=== PATIENT | female | born 1930 | race Caucasian/White ===

== ENCOUNTER 2019-04-22 10:01 | Observation (INO) ==
[2019-04-22] MEDS ORDERED: 0.9 % Sodium Chloride 500 ML IVC ONE (10:28)
[2019-04-22] MEDS ORDERED: Ipratropium/Albuterol Neb 3 ML IH ONE (10:46)
--- NOTE | 2019-04-22 10:52 | Emergency Department Note ---
Disposition Clinical Impression: Lung mass Hypotension Qualifiers: Hypotension type: unspecified hypotension type Qualified Code(s): I95.9 - Hypotension, unspecified UTI (urinary tract infection) Qualifiers: Urinary tract infection type: acute cystitis Disposition: Admitted As Inpatient Time of Disposition: 13:33 General Adult HPI - General Chief complaint: ED Extremity Injury, Upper Stated complaint: fall Time Seen by Provider: 04/22/19 10:07 Source: patient Mode of arrival: EMS Limitations: altered mental status Nursing Notes Reviewed: Yes Vital Signs Reviewed: Yes - History of Present Illness HPI Narrative: Ms. Mobley is a 88 yo F with PMH of oxygen-dependent emphysema and osteoporosis, presenting emergency department via EMS after a fall at [facility]. She is confused, only oriented to herself. She is unsure what caused the fall. She denies any preceding symptoms, dizziness, chest pain, dyspnea, or palpitations. prison staff reports that they heard the fall, and found her on the ground, leaning against the wall. It is unclear whether she passed out or hit h er head. She is not on anticoagulation. She admits to pain of the left shoulder and elbow, and low back pain, but denies any other symptoms. EMS reports that her oxygen saturation was dropping in route, increase her oxygen 4 L. She denies any chest pain, dyspnea, cough, or any focal weakness. She is hypotensive at 91/48. Code status is DNR-CC. Pain Scale: 5 - Related Data Home Medications Medication Instructions Recorded Confirmed Albuterol Neb [AccuNeb] 1.25 mg IH BID PRN 04/22/19 04/22/19 Atorvastatin Calcium [Lipitor] 20 mg PO DAILY 04/22/19 04/22/19 Furosemide [Lasix] 40 mg PO DAILY 04/22/19 04/22/19 HYDROcodone/Acet 5/325 mg [[place] 1 tab PO Q6H PRN 04/22/19 04/22/19 5-325 mg] Levothyroxine [Synthroid] 50 mcg PO DAILY 04/22/19 04/22/19 Lisinopril 2.5 mg PO DAILY 04/22/19 04/22/19 Metoprolol Tartrate [Lopressor] 25 mg PO DAILY 04/22/19 04/22/19 Pantoprazole Sodium 40 mg PO DAILY 04/22/19 04/22/19 Potassium Chloride [K-Tab ER] 20 meq PO DAILY 04/22/19 04/22/19 Allergies Allergy/AdvReac Type Severity Reaction Status Date / Time aspirin Allergy Hives Verified 12/08/18 13:51 Penicillins [PCN] Allergy See Verified 12/08/18 13:51 Comments Review of Systems: Admits to shoulder pain, elbow pain, back pain. Denies fevers, chills, dizziness, chest pain, dyspnea, cough, abdominal pain, nausea, vomiting, diarrhea, constipation dysuria, or lower extremity edema. Past Medical History - Past Medical History Medical history: Reports: hypertension Surgical history: Reports: non-contributory Psychiatric history: Reports: no psych history - Social History Smoking Status: Never smoker Smokeless Tobacco Status: No Alcohol use: Reports: none Drug use: Reports: none Physical Exam GEN: No acute distress, A&O1 (self only) HEAD: Atraumatic, normocephalic EYES: Pupils small, but symmetric and reactive to light, sclera white, conjunctiva pink HEART: RRR, no murmurs LUNGS: Inspiratory and expiratory wheezes throughout, crackles in the bases ABD: Soft, nontender, distended EXT: No edema noted, pulses 2/4 MSK: Mild tenderness to left shoulder and left elbow, tenderness to lumbar spine NEURO: No focal deficits, cooperative with exam, moving all extremities, no drift, no facial asymmetry, normal finger to nose testing - General Limitations: no limitations General appearance: alert, in no apparent distress Course Vital Signs Temperature 98.3 F 04/22/19 10:07 Pulse Rate 72 04/22/19 10:07 Respiratory Rate 18 04/22/19 10:07 Blood Pressure 91/48 04/22/19 10:07 O2 Sat by Pulse Oximetry 98 04/22/19 10:07 Temperature 98.3 F 04/22/19 10:07 Pulse Rate 76 04/22/19 12:10 Respiratory Rate 18 04/22/19 12:10 Blood Pressure 110/48 04/22/19 12:10 O2 Sat by Pulse Oximetry 98 04/22/19 12:10 Oxygen Delivery Oxygen Delivery Nasal Cannula Medical Decision Making - MDM Narrative Medical decision making narrative: Patient presents s/p fall likely secondary to hypoxia and respiratory distress. She is confused by daughter is at bedside who reports this appears at her baseline. She is chronically on O2 but desaturated en route, and also when sitting upright for the exam. She is hypotensive on presentation, but her BP responded well to 500ml NS. She is wheezing bilaterally with crackles in the bases. CXR shows increased interstitial markings, edema vs chronic changes. BNP is normal. EKG is sinus rhythm with HR 74 and no ischemic changes. Her Hgb is 9.4, but this chronic. CO2 is 41, and her normal is upper 30's. Renal function is stable. Other labs are unremarkable. Procalcitonin is negative. Head CT shows no acute intracranial abnormality. CT cervical spine shows multilevel degenerative changes. D-dimer is elevated, and CTA of the chest shows no PE, but does comment on a irregular left lower lobe mass, measuring 6.[address] also comments on multilevel indeterminate age thoracic fractures. With her hypotension and left lower lobe lung findings, will plan for admission. UA shows + nitrites, leuk esterase, will give 1G rocephin. Spoke with the hospitalist who requests a VBG and blood cultures, and accepts the admission. - Lab Data Lab results reviewed: Yes I reviewed the patient's lab results. Result diagrams: 04/22/19 10:38 04/22/19 10:38 Lab Results 04/22/19 04/22/19 04/22/19 Range/Units 10:38 10:38 10:38 WBC 7.4 (4.3-11.1) K/mcL RBC 3.23 L (3.82-4.97) M/mcL Hgb 9.4 L (11.5-15.4) g/dL Hct 32.3 L (35.3-44.9) % MCV 100.0 (83.0-100.0) fL MCH 29.1 (28.0-33.3) pg MCHC 29.1 L (31.6-35.5) g/dL RDW 13.8 (11.5-14.5) % Plt Count 219 (140-400) K/mcL MPV 9.4 (9.4-12.4) fL Immature Gran % 0.3 (0-4) % Seg Neutrophils % 65.8 % Lymphocytes % 23.1 % Monocytes % 8.4 % Eosinophils % 2.0 % Basophils % 0.4 % Neutrophils # 4.9 (1.6-8.9) K/mcL Lymphocytes # 1.7 (0.6-4.6) K/mcL Monocytes # 0.6 (0.0-1.3) K/mcL Eosinophils # 0.2 (0.0-0.6) K/mcL Basophils # 0.0 (0.0-0.2) K/mcL D-Dimer 2037 H (0-500) ng/mLFEU Sodium 143 (136-145) mEq/L Potassium 4.7 (3.5-5.1) mEq/L Chloride 98 (98-107) mEq/L Carbon Dioxide 41 H* (23-29) mEq/L BUN 28 H (8-23) mg/dL Creatinine 1.29 H (0.60-1.20) mg/dL Est GFR ( Amer) 47 L (> 60) Est GFR (Non-Af Amer) 39 L (> 60) BUN/Creatinine Ratio 22 (6-26) Glucose 107 H (70-105) mg/dL Calculated Osmolality 302 H (280-300) Lactic Acid (0.5-2.2) mmol/L Calcium 9.0 (8.6-10.3) mg/dL Troponin I < 0.03 (< 0.04) ng/mL B-Natriuretic Peptide (Less than 100) pg/mL Procalcitonin (0.00-0.15) ng/mL Urine Color (Yellow) Urine Clarity (Clear) Urine pH (5.0-8.0) pH Units Ur Specific [place] (1.010-1.025) Urine Protein (Neg-Trace) mg/dL Urine Glucose (UA) (Normal) mg/dL Urine Ketones (Negative) mg/dL Urine Blood (Negative) Urine Nitrite (Negative) Urine Bilirubin (Negative) Urine Urobilinogen (Normal) mg/dL Ur Leukocyte Esterase (Negative) Urine Microscopic RBC (0-3) per hpf Urine Microscopic WBC (0-3) per hpf Ur Squamous Epith Cells (None-Few) per lpf Urine Bacteria (None-Few) per hpf Hyaline Casts (None-Few) per lpf Ur Culture Indicated? (NO) 04/22/19 04/22/19 04/22/19 Range/Units 10:38 10:38 10:59 WBC (4.3-11.1) K/mcL RBC (3.82-4.97) M/mcL Hgb (11.5-15.4) g/dL Hct (35.3-44.9) % MCV (83.0-100.0) fL MCH (28.0-33.3) pg MCHC (31.6-35.5) g/dL RDW (11.5-14.5) % Plt Count (140-400) K/mcL MPV (9.4-12.4) fL Immature Gran % (0-4) % Seg Neutrophils % % Lymphocytes % % Monocytes % % Eosinophils % % Basophils % % Neutrophils # (1.6-8.9) K/mcL Lymphocytes # (0.6-4.6) K/mcL Monocytes # (0.0-1.3) K/mcL Eosinophils # (0.0-0.6) K/mcL Basophils # (0.0-0.2) K/mcL D-Dimer (0-500) ng/mLFEU Sodium (136-145) mEq/L Potassium (3.5-5.1) mEq/L Chloride (98-107) mEq/L Carbon Dioxide (23-29) mEq/L BUN (8-23) mg/dL Creatinine (0.60-1.20) mg/dL Est GFR ( Amer) (> 60) Est GFR (Non-Af Amer) (> 60) BUN/Creatinine Ratio (6-26) Glucose (70-105) mg/dL Calculated Osmolality (280-300) Lactic Acid 0.9 (0.5-2.2) mmol/L Calcium (8.6-10.3) mg/dL Troponin I (< 0.04) ng/mL B-Natriuretic Peptide 35 (Less than 100) pg/mL Procalcitonin < 0.02 (0.00-0.15) ng/mL Urine Color (Yellow) Urine Clarity (Clear) Urine pH (5.0-8.0) pH Units Ur Specific [place] (1.010-1.025) Urine Protein (Neg-Trace) mg/dL Urine Glucose (UA) (Normal) mg/dL Urine Ketones (Negative) mg/dL Urine Blood (Negative) Urine Nitrite (Negative) Urine Bilirubin (Negative) Urine Urobilinogen (Normal) mg/dL Ur Leukocyte Esterase (Negative) Urine Microscopic RBC (0-3) per hpf Urine Microscopic WBC (0-3) per hpf Ur Squamous Epith Cells (None-Few) per lpf Urine Bacteria (None-Few) per hpf Hyaline Casts (None-Few) per lpf Ur Culture Indicated? (NO) 04/22/19 Range/Units 12:22 WBC (4.3-11.1) K/mcL RBC (3.82-4.97) M/mcL Hgb (11.5-15.4) g/dL Hct (35.3-44.9) % MCV (83.0-100.0) fL MCH (28.0-33.3) pg MCHC (31.6-35.5) g/dL RDW (11.5-14.5) % Plt Count (140-400) K/mcL MPV (9.4-12.4) fL Immature Gran % (0-4) % Seg Neutrophils % % Lymphocytes % % Monocytes % % Eosinophils % % Basophils % % Neutrophils # (1.6-8.9) K/mcL Lymphocytes # (0.6-4.6) K/mcL Monocytes # (0.0-1.3) K/mcL Eosinophils # (0.0-0.6) K/mcL Basophils # (0.0-0.2) K/mcL D-Dimer (0-500) ng/mLFEU Sodium (136-145) mEq/L Potassium (3.5-5.1) mEq/L Chloride (98-107) mEq/L Carbon Dioxide (23-29) mEq/L BUN (8-23) mg/dL Creatinine (0.60-1.20) mg/dL Est GFR ( Amer) (> 60) Est GFR (Non-Af Amer) (> 60) BUN/Creatinine Ratio (6-26) Glucose (70-105) mg/dL Calculated Osmolality (280-300) Lactic Acid (0.5-2.2) mmol/L Calcium (8.6-10.3) mg/dL Troponin I (< 0.04) ng/mL B-Natriuretic Peptide (Less than 100) pg/mL Procalcitonin (0.00-0.15) ng/mL Urine Color Yellow (Yellow) Urine Clarity Cloudy A (Clear) Urine pH 5.5 (5.0-8.0) pH Units Ur Specific [place] 1.028 H (1.010-1.025) Urine Protein Negative (Neg-Trace) mg/dL Urine Glucose (UA) Normal (Normal) mg/dL Urine Ketones Negative (Negative) mg/dL Urine Blood Negative (Negative) Urine Nitrite Positive A (Negative) Urine Bilirubin Negative (Negative) Urine Urobilinogen Normal (Normal) mg/dL Ur Leukocyte Esterase Large H (Negative) Urine Microscopic RBC 0-3 (0-3) per hpf Urine Microscopic WBC TNTC H (0-3) per hpf Ur Squamous Epith Cells Many H (None-Few) per lpf Urine Bacteria Many H (None-Few) per hpf Hyaline Casts Few (None-Few) per lpf Ur Culture Indicated? YES A (NO) Attestation Statement - Attestation Attestation: I, Ruddy Ramos, examined this patient and my medical decision-making was reviewed with the DESIGN PAINTER/PA/Advanced Practice Nurse/Resident Physician. I agree with the documented findings, disposition and treatment plan as described except to the extent set forth below. 88-year-old female presents emergency department from the shelter after fall. The fall was unwitnessed and shelter staff found her leaning against wall. Patient's unable to give a history regarding her case and presentation. Patient was initially hypotensive during evaluation, this improved with IV fluids. Patient had difficulty breathing which improved with DuoNeb. She does have a history of COPD. D-dimer was elevated. CTA of the chest did not show evidence of PE however it did show a possible mass. Patient updated regarding imaging and laboratory results. Patient had urinary tract infection was for which she was given antibiotics. Vital signs improved after IV fluids and are stable prior to admission to the hospital Patient will be admitted to the [facility] for further care and evaluation.
[2019-04-22 10:56] LABS: Basophils % 0.4 %; Eosinophils # 0.2 K/mcL (0.0-0.6); Hematocrit 32.3 % (35.3-44.9); Hemoglobin 9.4 g/dL (11.5-15.4); Immature Granulocytes % 0.3 % (0-4); Lymphocytes # 1.7 K/mcL (0.6-4.6); Lymphocytes % 23.1 %; Mean Corpuscular HGB Conc 29.1 g/dL (31.6-35.5); Mean Corpuscular Hemoglobin 29.1 pg (28.0-33.3); Mean Platelet Volume 9.4 fL (9.4-12.4); Monocytes # 0.6 K/mcL (0.0-1.3); Monocytes % 8.4 %; Neutrophils # 4.9 K/mcL (1.6-8.9); Platelet Count 219 K/mcL (140-400); Red Blood Count 3.23 M/mcL (3.82-4.97); Red Cell Distribution Width 13.8 % (11.5-14.5); Segmented Neutrophils % 65.8 %; White Blood Count 7.4 K/mcL (4.3-11.1)
[2019-04-22] MEDS ORDERED: Isovue-370 500 ML BOTTLE IVP ONE (11:13)
[2019-04-22 11:17] LABS: Blood Urea Nitrogen 28 mg/dL (8-23); Carbon Dioxide 41 mEq/L (23-29); Chloride 98 mEq/L (98-107); Glucose 107 mg/dL (70-105); Osmolality,Calculated 302 (280-300); Potassium 4.7 mEq/L (3.5-5.1); Sodium 143 mEq/L (136-145)
[2019-04-22 11:39] LABS: Troponin I < 0.03 ng/mL (< 0.04)
[2019-04-22 12:00] LABS: BUN/Creatinine Ratio 22 (6-26); eGFR For African Americans 47 (> 60); eGFR For Non-African Americans 39 (> 60)
[2019-04-22 12:31] LABS: Bilirubin,Urine Negative (Negative); Blood,Urine Negative (Negative); Clarity,Urine Cloudy (Clear); Color,Urine Yellow (Yellow); Glucose,Urine (UA) Normal (Normal); Ketones,Urine Negative (Negative); Leukocyte Esterase,Urine Large (Negative); Nitrite,Urine Positive (Negative); PH,Urine 5.5 pH Units (5.0-8.0); Protein,Urine Negative (Neg-Trace); Specific Gravity,Urine 1.028 (1.010-1.025); Urobilinogen,Urine Normal (Normal)
[2019-04-22 12:32] LABS: Bacteria,Urine Many per hpf (None-Few); Hyaline Casts,Urine Few per lpf (None-Few); RBC,Urine 0-3 per hpf (0-3); Squamous Epithelial Cell,Urine Many per lpf (None-Few); WBC,Urine TNTC per hpf (0-3)
[2019-04-22] MEDS ORDERED: cefTRIAXone 1,000 MG in Water for inj. (sterile) 10 ML IVP ONE (13:02)
[2019-04-22 14:41] LABS: VBG HCO3 34 mEq/L (21-27); VBG PCO2 54 mmHg (41-51); VBG PH 7.41 pH Units (7.32-7.42); VBG PO2 195 mmHg (25-50)
--- NOTE | 2019-04-22 16:06 | Internal Med History&Physical ---
Date of Encounter: 04/22/19 Time of Encounter: 15:57 Internal Medicine - H&P: HPI Chief complaint: GLF Admitted From: Long-term Nursing Facility Plans for Post Hospital Care: Transfer Occupational Physician Care History of present illness: Ms. Mobley is a 88 year old female with history of chronic respiratory failure secondary to COPD on oxygen outpatient presents after a [facility]-level fall at her [facility]. Patient has a history of frequent falls. Today he was at [facility] and went into her closet to get dressed without using her call light before hand and had a ground-level fall. Patient denies dizziness or lightheadedness prior to fall. Denies loss of consciousness event. Complains of pain in her left calf. Unsure if she hit her head. Daughter says that patient has a history of frequent falls when she is noncompliant with using her call light. Some concern for confusion, however, daughter says she is mostly at baseline. In the ED, VSS. WBC 7.4. Bicarbonate 41. Creatinine 1.29 (BL 1-1.3). Troponin negative. BNP 35. D-dimer 2036. UA with concern for infection. Admitted to medicine. Past Med Surg Social Fam HX - Past Medical History Medical history: hypertension Additional medical history: has O2 at 2lpm at home Psychiatric history: no psych history - Past Surgical History Surgical History: non-contributory - Social History Smoking Status: Current every day smoker Smokeless Tobacco Status: No Alcohol use: none Drug use: none - Family History Sister Hx Family Endocrine Disorder: Yes (DM) Internal Medicine - H&P: Meds Albuterol Neb [AccuNeb] 1.25 mg IH BID PRN 04/22/19 [History] Atorvastatin Calcium [Lipitor] 20 mg PO DAILY 04/22/19 [History] Furosemide [Lasix] 40 mg PO DAILY 04/22/19 [History] HYDROcodone/Acet 5/325 mg [[place] 5-325 mg] 1 tab PO Q6H PRN 04/22/19 [History] Levothyroxine [Synthroid] 50 mcg PO DAILY 04/22/19 [History] Lisinopril 2.5 mg PO DAILY 04/22/19 [History] Metoprolol Tartrate [Lopressor] 25 mg PO DAILY 04/22/19 [History] Pantoprazole Sodium 40 mg PO DAILY 04/22/19 [History] Potassium Chloride [K-Tab ER] 20 meq PO DAILY 04/22/19 [History] Allergy/AdvReac Type Severity Reaction Status Date / Time aspirin Allergy Hives Verified 12/08/18 13:51 Penicillins [PCN] Allergy See Verified 12/08/18 13:51 Comments All Systems PM: A 10-system review of systems was performed and is negative for pertinent findings except as documented above in the HPI. Review of systems: General: Fevers / Chills / Weight loss / Night sweats Eyes: Blurry Vision / Change in Vision HENT: Ear Pain / Ear Drainage / Rhinorrhea / Throat Pain / Lymphadenopathy Cardiovascular: Chest Pain / Palpatations / Orthopnea / TATE / Weight gain Lungs: Dyspnea / Wheezing / Cough / Sputum production / Pleurisy Abdomen: Abdomen pain / Abdominal distention / Nausea / Vomiting / Diarrhea / Const : Dysuria / Urinary Frequency / Urinary Urgency / Hematuria Extremities: LE edema / Ext pain / Ext erythema Skin: Rashes / Abrasions / Contusions Psych: Hallucinations / Anxiety / Depression Neuro: Weakness / Numbness / Tingling / Facial Droop / Dysphagia - Constitutional Vitals: Temp Pulse Resp BP Pulse Ox 98.3 F 76 18 128/94 96 04/22/19 10:07 04/22/19 13:43 04/22/19 13:43 04/22/19 13:43 04/22/19 13:43 Exam: General: Ill-appearing and in no acute distress HEENT: No erythema of posterior pharynx. No exudates. Lymphatics: No mandibular or cervical lymphadenopathy Cardiovascular: RRR. No murmurs. No chest wall tenderness. Lungs: Clear to auscelltation bilaterally. Regular chest rise. Abdomen: Non-tender. No rebound or gaurding. Nl bowel sounds. Extremities: No edema. 2+ pulses radial and pedal pulses. No tenderness of left calf. Skin: No rahses, abrasions, or contusions. Nl cap refill. Psych: Nl attention. Oriented to place but not time. Neuro: piece goods packer II-XII intact. 5/5 strength. Sensation to light touch and pinprick intact. Internal Med - H&P Results - Labs CBC & Chem 7: 04/22/19 10:38 04/22/19 10:38 Labs: Short CBC 04/22/19 Range/Units 10:38 WBC 7.4 (4.3-11.1) K/mcL Hgb 9.4 L (11.5-15.4) g/dL Hct 32.3 L (35.3-44.9) % Plt Count 219 (140-400) K/mcL Neutrophils # 4.9 (1.6-8.9) K/mcL BMP 04/22/19 10:38 Sodium 143 Potassium 4.7 Chloride 98 Carbon Dioxide 41 H* BUN 28 H Creatinine 1.29 H Glucose 107 H Calcium 9.0 Cardiac Enzymes 04/22/19 Range/Units 10:38 Troponin I < 0.03 (< 0.04) ng/mL Urine 04/22/19 Range/Units 12:22 Urine Color Yellow (Yellow) Urine Clarity Cloudy A (Clear) Urine pH 5.5 (5.0-8.0) pH Units Ur Specific [place] 1.028 H (1.010-1.025) Urine Protein Negative (Neg-Trace) mg/dL Urine Glucose (UA) Normal (Normal) mg/dL - ABG Interpretation ABG results: 04/22/19 14:38 VBG pH 7.41 VBG pCO2 54 H VBG pO2 195 H VBG HCO3 34 H - Impressions ITS Impressions Shoulder X-Ray 04/22/19 00:00 IMPRESSION: Total shoulder arthroplasty without acute complication. No acute fracture. D/ / 04/22/2019 15:07:42 Ivan Jung MD / brandie Interpreting Provider: Ivan Jung MD Cervical Spine CT 04/22/19 10:24 IMPRESSION: No acute osseous abnormality. D/ / 04/22/2019 12:35:47 Ivan Jung MD / brandie Interpreting Provider: Ivan Jung MD Chest X-Ray 04/22/19 10:24 IMPRESSION: Increased interstitial prominence. Consider mild interstitial pulmonary edema versus chronic interstitial disease. D/ / 04/22/2019 11:19:16 Leo Beck MD / [facility] Interpreting Provider: Leo Beck MD Elbow X-Ray 04/22/19 10:24 IMPRESSION: 1. No acute fracture identified. 2. Small nonspecific elbow effusion. Radiographically occult fracture cannot be excluded in the setting of effusion and trauma. 3. Osteopenia. D/ / Froilan Molina MD / Froilan Molina MD Interpreting Provider: Froilan Molina MD Head CT 04/22/19 10:24 IMPRESSION: No acute intracranial abnormality. D/ / Ivan Jung MD / Ivan Jung MD Interpreting Provider: Ivan Jung MD Lumbar Spine X-Ray 04/22/19 10:27 IMPRESSION: Age-indeterminate multilevel compression fractures. Correlate MRI imaging as warranted. D/ / 04/22/2019 14:23:46 Ivan Jung MD / larissa Interpreting Provider: Ivan Jung MD Chest CTA 04/22/19 11:13 IMPRESSION: 1. No acute pulmonary artery embolism. 2. Irregular, hypodense, 6.4 x 6 cm, left lower lobe mass abutting the pleural surface. Recommend tissue sampling and PET-CT correlation. 3. Hiatal hernia. 4. Age-indeterminate/remote-appearing multilevel thoracic compression fractures. D/ / 04/22/2019 12:35:29 Ivan Jung MD / larissa Interpreting Provider: Ivan Jung MD - Assessment and Plan (1) Fall from ground level Current Visit: Yes Status: Acute Assessment and plan: Patient with history of frequent falls at home presents after a ground-level fall in the setting of normal vitals, mild confusion but otherwise no focal findings on physical exam, elevated d-dimer, and UA with concern for infection. -Fall likely mechanical in nature given her extensive history of falls and was not using call light to get up -Could be suffering from UTI, although, difficult to discern given this could just represent asymptomatic bacteriuria -Also experiencing left calf pain in setting of elevated d-dimer PLAN: - Gentle IVF - Ceftriaxone - F/u urine culture - LLE duplex - PT eval - Orthostatic BPs before discharge (2) Acute cystitis Current Visit: Yes Status: Acute Assessment and plan: See above Qualifiers: Hematuria presence: without hematuria Qualified Code(s): N30.00 - Acute cystitis without hematuria (3) Leg pain Current Visit: Yes Status: Acute Assessment and plan: See above Qualifiers: Laterality: left Qualified Code(s): M79.605 - Pain in left leg (4) Lung mass Current Visit: Yes Status: Acute Assessment and plan: On CTA x cm LLL mass abuting pleural surface. - We will discuss this with daughter - We will likely need to consult CT surgery for biopsy of this if within goals of care
[2019-04-22] MEDS ORDERED: Ondansetron ODT 4 MG TAB.RAPDIS SL PRN (16:19)
[2019-04-22] MEDS ORDERED: Naloxone 0.4 MG/ML INJ IVP PRN (16:19)
[2019-04-22] MEDS: *HR* HYDROcodone/Acet 5/325 mg TABLET PO PRN (18:11)
[2019-04-23] MEDS: *HR* HYDROcodone/Acet 5/325 mg TABLET PO PRN ×2 (00:12→06:21)
[2019-04-23 04:38] LABS: Basophils % 0.4 %; Eosinophils # 0.1 K/mcL (0.0-0.6); Eosinophils % 1.1 %; Immature Granulocytes % 0.4 % (0-4); Lymphocytes # 1.7 K/mcL (0.6-4.6); Lymphocytes % 21.1 %; Mean Corpuscular Hemoglobin 28.8 pg (28.0-33.3); Mean Corpuscular Volume 96.2 fL (83.0-100.0); Mean Platelet Volume 9.8 fL (9.4-12.4); Monocytes # 0.8 K/mcL (0.0-1.3); Monocytes % 9.4 %; Neutrophils # 5.5 K/mcL (1.6-8.9); Platelet Count 206 K/mcL (140-400); Red Blood Count 3.12 M/mcL (3.82-4.97); Red Cell Distribution Width 13.9 % (11.5-14.5); Segmented Neutrophils % 67.6 %; White Blood Count 8.1 K/mcL (4.3-11.1)
[2019-04-23 04:57] LABS: Calcium 9.1 mg/dL (8.6-10.3); Potassium 4.8 mEq/L (3.5-5.1)
[2019-04-23 05:28] LABS: ABG Base Excess 15 mEq/L (-2 to 3); ABG HCO3 43 mEq/L (21-27); ABG Oxygen Saturation 97 % (95-98); ABG PCO2 70 mmHg (35-45); ABG PH 7.39 pH Units (7.32-7.45); ABG PO2 101 mmHg (85-104); ABG TCO2 45 mEq/L (20-26)
[2019-04-23] MEDS: Furosemide 40 MG TABLET PO SCH (08:36)
[2019-04-23] MEDS: cefTRIAXone 1,000 MG in Water for inj. (sterile) 10 ML IVP SCH (08:36)
--- NOTE | 2019-04-23 13:14 | Internal Med Progress Note ---
Hospitalist Progress Note - Encounter Date of Encounter: 04/23/19 Time of Encounter: 13:12 - Subjective Interval History: Patient found to have elevated PCo2 overnight but noncompliant with BiPAP. Still complaining of knee pain this morning. - Exam Vitals: Temp Pulse Resp BP Pulse Ox 99.0 F 68 18 91/54 98 04/23/19 11:56 04/23/19 11:56 04/23/19 11:56 04/23/19 11:56 04/23/19 11:56 Exam: General: Ill-appearing and in no acute distress HEENT: No erythema of posterior pharynx. No exudates. Lymphatics: No mandibular or cervical lymphadenopathy Cardiovascular: RRR. No murmurs. No chest wall tenderness. Lungs: Clear to auscelltation bilaterally. Regular chest rise. Abdomen: Non-tender. No rebound or gaurding. Nl bowel sounds. Extremities: No edema. 2+ pulses radial and pedal pulses. No tenderness of left calf. Skin: No rahses, abrasions, or contusions. Nl cap refill. MSK: Mild joint line tenderness of Left knee. Normal active ROM of left knee. Psych: Nl attention. Oriented to place but not time. Neuro: spray operator II-XII intact. 5/5 strength. Sensation to light touch and pinprick intact. - Assessment and Plan (1) Fall from ground level Current Visit: Yes Status: Acute Assessment and Plan: Patient with history of frequent falls at home presents after a ground-level fall in the setting of normal vitals, mild confusion but otherwise no focal findings on physical exam, elevated d-dimer, and UA with concern for infection. -Fall likely mechanical in nature given her extensive history of falls and was not using call light to get up -Could be suffering from UTI, although, difficult to discern given this could just represent asymptomatic bacteriuria - urine cx pending -Also experiencing left calf pain in setting of elevated d-dimer - doppler pending PLAN: - Gentle IVF - Ceftriaxone - F/u urine culture - LLE duplex - PT eval - Orthostatic BPs before discharge (2) Acute cystitis Current Visit: Yes Status: Acute Assessment and Plan: See above (3) Leg pain Current Visit: Yes Status: Acute Assessment and Plan: See above (4) Lung mass Current Visit: Yes Status: Acute Assessment and Plan: On CTA x cm LLL mass abuting pleural surface. Discussed this with daughter and patient regarding risks and benefits of further testing and possible prognoses if nothing was done - do not want undergo further workup or treatment at this time. - Monitor DVT Prophylaxis: heparin Internal Medicine: Result - Labs CBC & Chem 7: 04/23/19 04:06 04/23/19 04:06 Labs: Short CBC 04/23/19 Range/Units 04:06 WBC 8.1 (4.3-11.1) K/mcL Hgb 9.0 L (11.5-15.4) g/dL Hct 30.0 L (35.3-44.9) % Plt Count 206 (140-400) K/mcL Neutrophils # 5.5 (1.6-8.9) K/mcL BMP 04/23/19 04:06 Sodium 143 Potassium 4.8 Chloride 99 Carbon Dioxide 40 H* BUN 25 H Creatinine 1.23 H Glucose 104 Calcium 9.1 - ABG Interpretation ABG results: ABG ABG pH 7.39 pH Units (7.32-7.45) 04/23/19 05:23 ABG pCO2 70 mmHg (35-45) H* 04/23/19 05:23 ABG pO2 101 mmHg (85-104) 04/23/19 05:23 ABG O2 Saturation 97 % (95-98) 04/23/19 05:23 PT/INR, D-dimer D-Dimer 2037 ng/mLFEU (0-500) H 04/22/19 10:38 - Impressions Impressions Shoulder X-Ray 04/22/19 00:00 IMPRESSION: Total shoulder arthroplasty without acute complication. No acute fracture. D/ / 04/22/2019 15:07:42 Ivan Jung MD / brandie Interpreting Provider: Ivan Jung MD Cervical Spine CT 04/22/19 10:24 IMPRESSION: No acute osseous abnormality. D/ / 04/22/2019 12:35:47 Ivan Jung MD / brandie Interpreting Provider: Ivan Jung MD Elbow X-Ray 04/22/19 10:24 IMPRESSION: 1. No acute fracture identified. 2. Small nonspecific elbow effusion. Radiographically occult fracture cannot be excluded in the setting of effusion and trauma. 3. Osteopenia. D/ / Froilan Molina MD / Froilan Molina MD Interpreting Provider: Froilan Molina MD Lumbar Spine X-Ray 04/22/19 10:27 IMPRESSION: Age-indeterminate multilevel compression fractures. Correlate MRI imaging as warranted. D/ / 04/22/2019 14:23:46 Ivan Jung MD / larissa Interpreting Provider: Ivan Jung MD Chest CTA 04/22/19 11:13 IMPRESSION: 1. No acute pulmonary artery embolism. 2. Irregular, hypodense, 6.4 x 6 cm, left lower lobe mass abutting the pleural surface. Recommend tissue sampling and PET-CT correlation. 3. Hiatal hernia. 4. Age-indeterminate/remote-appearing multilevel thoracic compression fractures. D/ / 04/22/2019 12:35:29 Ivan Jung MD / larissa Interpreting Provider: Ivan Jung MD Consult Discharge Plan - Plan Referrals: Cameron Shipley MD [Primary Care Provider] - ____ (2) Acute cystitis Qualifiers: Hematuria presence: without hematuria Qualified Code(s): N30.00 - Acute cystitis without hematuria (3) Leg pain Qualifiers: Laterality: left Qualified Code(s): M79.605 - Pain in left leg
[2019-04-23] MEDS: *HR* Heparin 5,000 UNIT/ML VIAL SQ SCH (17:44)
--- NOTE | 2019-04-23 23:01 | Electrocardiograph Report ---
[address] [address] Test Date: 2019-04-22 Pat Name: Amita Mobley Department: EXAM7 Room: 3B12 Gender: F Inspector Subassemblies: : [id number] Requested By: Tal Szymanski Order Number: [id number] Reading MD: Jana Li Measurements Intervals [place] Rate: 74 P: 73 SD: 161 QRS: 60 QRSD: 78 T: 55 QT: 367 QTc: 388 Interpretive Statements Sinus rhythm Atrial premature complexes Electronically Signed On 04-23-2019 22:59:56 EDT by Jana Li
[2019-04-24] MEDS: *HR* Heparin 5,000 UNIT/ML VIAL SQ SCH (05:24)
[2019-04-24 07:26] VITALS: BP 114/74
[2019-04-24] MEDS: Furosemide 40 MG TABLET PO SCH (07:43)
[2019-04-24] MEDS: cefTRIAXone 1,000 MG in Water for inj. (sterile) 10 ML IVP SCH (07:46)
--- NOTE | 2019-04-24 07:55 | Discharge Summary ---
Orders not resulted at time of discharge: Pending orders 04/22/19 10:58 Culture,Blood [BC] Stat Date of Encounter: 04/24/19 Time of Encounter: 07:52 - Discharge Diagnosis (1) Fall from ground level Priority: Primary Status: Acute (2) Acute cystitis Priority: Secondary Status: Acute Qualifiers: Hematuria presence: without hematuria Qualified Code(s): N30.00 - Acute cystitis without hematuria (3) Leg pain Priority: Secondary Status: Acute Qualifiers: Laterality: left Qualified Code(s): M79.605 - Pain in left leg (4) Lung mass Priority: Secondary Status: Acute Hospital course: Ms. Mobley is a 88 year old female with history of frequent falls at [facility] presented after a ground-level fall. Patient got up without using her call light or her walker and had a ground-level fall while putting on her clothes. On presentation, complained of left knee pain but imaging without acute findings. Also had a questionable E coli UTI on workup (unclear if this was asymptomatic bacteuria or acute cystitis) so was sent home with Keflex. Recommend she use ice and heat therapy on her knee for pain control and always use her call light before getting up at [facility] to avoid future falls. - Time Spent with Patient Total time spent providing and/or coordinating discharge services: 65 minutes Time spent: Greater than 30 minutes - Discharge Medications Prescriptions: New cephALEXin [Keflex] 500 mg PO BID 5 Days #10 capsule Continued Furosemide [Lasix] 40 mg PO DAILY Levothyroxine [Synthroid] 50 mcg PO DAILY Atorvastatin Calcium [Lipitor] 20 mg PO DAILY Lisinopril 2.5 mg PO DAILY Metoprolol Tartrate [Lopressor] 25 mg PO DAILY HYDROcodone/Acet 5/325 mg [[place] 5-325 mg] 1 tab PO Q6H PRN PRN Reason: Pain Pantoprazole Sodium 40 mg PO DAILY Potassium Chloride [K-Tab ER] 20 meq PO DAILY Albuterol Neb [AccuNeb] 1.25 mg IH BID PRN PRN Reason: sob/wheezing Home Medications: Albuterol Neb [AccuNeb] 1.25 mg IH BID PRN 04/22/19 [History] Atorvastatin Calcium [Lipitor] 20 mg PO DAILY 04/22/19 [History] Furosemide [Lasix] 40 mg PO DAILY 04/22/19 [History] HYDROcodone/Acet 5/325 mg [[place] 5-325 mg] 1 tab PO Q6H PRN 04/22/19 [History] Levothyroxine [Synthroid] 50 mcg PO DAILY 04/22/19 [History] Lisinopril 2.5 mg PO DAILY 04/22/19 [History] Metoprolol Tartrate [Lopressor] 25 mg PO DAILY 04/22/19 [History] Pantoprazole Sodium 40 mg PO DAILY 04/22/19 [History] Potassium Chloride [K-Tab ER] 20 meq PO DAILY 04/22/19 [History] cephALEXin [Keflex] 500 mg PO BID 5 Days #10 capsule 04/24/19 [Rx] Allergies/Adverse Reactions: Allergy/AdvReac Type Severity Reaction Status Date / Time aspirin Allergy Hives Verified 12/08/18 13:51 Penicillins [PCN] Allergy See Verified 12/08/18 13:51 Comments Date of admission: 04/22/19 13:07 Primary care physician: Cameron Shipley MD Consults: 04/22/19 16:15 Consult to Physical Therapy [CONS] Routine Comment: Evaluate, develop and implement POC Reason for Consult: Deconditioning Does patient have active BEDREST order?: No Is patient medically & hemodynamically stable?: Yes Patient assessed for mobility or mobilized this visit?: No 04/23/19 05:04 Consult to Respiratory Therapy [CONS] Routine Reason for Consult: ABG Call Completed: No - Constitutional Vitals: Temp Pulse Resp BP Pulse Ox 98.3 F 78 16 114/74 98 04/24/19 07:21 04/24/19 07:21 04/24/19 07:21 04/24/19 07:21 04/24/19 07:21 Exam: General: Ill-appearing and in no acute distress HEENT: No erythema of posterior pharynx. No exudates. Lymphatics: No mandibular or cervical lymphadenopathy Cardiovascular: RRR. No murmurs. No chest wall tenderness. Lungs: Clear to auscelltation bilaterally. Regular chest rise. Abdomen: Non-tender. No rebound or gaurding. Nl bowel sounds. Extremities: No edema. 2+ pulses radial and pedal pulses Skin: No rahses, abrasions, or contusions. Nl cap refill. Psych: Nl attention. A&Ox3 Neuro: transportation manager II-XII intact. 5/5 strength. Sensation to light touch and pinprick intact. - Patient Status Disposition: Transfer Intermediate Care Fac Condition: Good Functional capacity at discharge: uses cane/walker Overall status at discharge: patient is progressing back to baseline - Discharge Instructions Follow Up With: Cameron Shipley MD [Primary Care Provider] - - Diet and Activity Activity: ambulate only with your walker Diet: advance to your usual diet
--- NOTE | 2019-04-24 08:02 | Physician Discharge Referral ---
ExtendedCare Referral Info Transfer To: [facility] Provider in Charge after Transfer: PCP Institutional Level of Care: Intermediate - Diagnosis (1) Fall from ground level Status: Acute (2) Acute cystitis Priority: Secondary Status: Acute (3) Leg pain Priority: Secondary Status: Acute (4) Lung mass Priority: Secondary Status: Acute Prognosis: Good Aware of Diagnosis: Patient, Family Aware of Prognosis: Patient, Family - Transfer Medications Prescriptions: cephALEXin [Keflex] 500 mg PO BID 5 Days #10 capsule Home Medications: Albuterol Neb [AccuNeb] 1.25 mg IH BID PRN 04/22/19 [History] Atorvastatin Calcium [Lipitor] 20 mg PO DAILY 04/22/19 [History] Furosemide [Lasix] 40 mg PO DAILY 04/22/19 [History] HYDROcodone/Acet 5/325 mg [[place] 5-325 mg] 1 tab PO Q6H PRN 04/22/19 [History] Levothyroxine [Synthroid] 50 mcg PO DAILY 04/22/19 [History] Lisinopril 2.5 mg PO DAILY 04/22/19 [History] Metoprolol Tartrate [Lopressor] 25 mg PO DAILY 04/22/19 [History] Pantoprazole Sodium 40 mg PO DAILY 04/22/19 [History] Potassium Chloride [K-Tab ER] 20 meq PO DAILY 04/22/19 [History] cephALEXin [Keflex] 500 mg PO BID 5 Days #10 capsule 04/24/19 [Rx] Allergies/Adverse Reactions: Allergy/AdvReac Type Severity Reaction Status Date / Time aspirin Allergy Hives Verified 12/08/18 13:51 Penicillins [PCN] Allergy See Verified 12/08/18 13:51 Comments - Respiratory Orders Smoking Cessation: Smoking cessation has been advised. For more information, call the [place] Tobacco Quit Line at 3-215-TGCX-NOW. - Ancillary Orders May use pressure relief devices daily prn - Advance Directives Living Will: No Power of Medical Doctor for Health Care: No Code Status: DNR-Comfort Care - Mobility Orders Chair, Ambulate - Rehabiliation Orders Rehab Potential: Fair - Treatments Skin tear care topically daily PRN per policy, May check for fecal impaction rectally daily PRN - Diet Orders Regular CERTIFICATION: I certify that the transfer of the above named patient to an Extended Care Facility is necessary for the continuing treatment of the diagnosis listed. The above information is true and accurate reflection of patient's current condition. Antonino Jorge MD Confidential - Redisclosure prohibited without a patient's written consent.
== END 2019-04-24 09:56 ==
LOC: EMEROOARM 10:01 → 3BNU 10:01 → SUATTDRO 13:07 → 3BNU 13:57
PROVIDERS: ADMIT Internal Medicine; ATTEND Internal Medicine

== ENCOUNTER 2019-07-16 16:30 | Inpatient (IN) ==
[2019-07-16] MEDS ORDERED: 0.9 % Sodium Chloride 1,000 ML IVC ONE ×2 (16:54→18:00)
[2019-07-16] MEDS ORDERED: Ondansetron 4 MG/2 ML VIAL IVP ONE (16:54)
[2019-07-16 17:06] LABS: Hematocrit 41.6 % (35.3-44.9); Hemoglobin 13.6 g/dL (11.5-15.4); Mean Corpuscular HGB Conc 32.7 g/dL (31.6-35.5); Mean Corpuscular Hemoglobin 29.2 pg (28.0-33.3); Mean Corpuscular Volume 89.5 fL (83.0-100.0); Mean Platelet Volume 9.4 fL (9.4-12.4); Nucleated Red Blood Cells 0.1 /100 WBC (0); Platelet Count 293 K/mcL (140-400); Red Blood Count 4.65 M/mcL (3.82-4.97); Red Cell Distribution Width 14.3 % (11.5-14.5)
[2019-07-16] MEDS ORDERED: Pantoprazole 40 MG VIAL IVP ONE (17:07)
[2019-07-16 17:41] LABS: Albumin 3.6 g/dL (3.5-5.7); Albumin/Globulin Ratio 1.3 (1.1-2.2); Bilirubin,Direct 0.1 mg/dL (0.0-0.2); Bilirubin,Indirect 0.4 mg/dL (0.0-1.0); Bilirubin,Total 0.5 mg/dL (0.3-1.0); Calcium 8.9 mg/dL (8.6-10.3); Globulin 2.8 g/dL (2.4-3.5); Potassium 4.6 mEq/L (3.5-5.1); Total Protein 6.4 g/dL (6.4-8.9); Troponin I 0.03 ng/mL (< 0.04)
[2019-07-16 17:48] LABS: Lymphocytes # 0.5 K/mcL (0.6-4.6); Monocytes # 0.9 K/mcL (0.0-1.3); Neutrophils # 21.6 K/mcL (1.6-8.9); Platelet Estimate Normal (Normal)
[2019-07-16] MEDS ORDERED: Piperacillin/Tazobactam 3.375 GM in 0.9 % Sodium Chloride Mini Bag 100 ML IVPB ONE (18:12)
[2019-07-16] MEDS: Pantoprazole 40 MG in 0.9 % Sodium Chloride Mini Bag 100 ML IVC SCH (18:51)
[2019-07-16] MEDS ORDERED: *HR* Rocuronium Bromide 50 MG/5 ML VIAL ONE (20:04)
[2019-07-16] MEDS ORDERED: *HR* Succinylcholine 200 MG/10 ML VIAL IVP ONE (20:04)
[2019-07-16] MEDS ORDERED: *HR* Phenylephrine 10 MG/ML VIAL ONE (20:05)
[2019-07-16] MEDS ORDERED: Lidocaine -MPF 2% 2 ML VIAL ONE ×2 (20:05→20:07)
[2019-07-16] MEDS ORDERED: *HR* Propofol 200 MG/20 ML VIAL IVP ONE (20:07)
[2019-07-16] MEDS ORDERED: *HR* FentaNYL (PF) 250 MCG/5 ML VIAL ONE (20:18)
[2019-07-16] MEDS ORDERED: CefOXitin 1,000 MG VIAL ONE ×2 (20:21→20:23)
[2019-07-16] MEDS ORDERED: EPHEDrine 50 MG/ML VIAL ONE (21:31)
[2019-07-16] MEDS ORDERED: *HR* Norepinephrine 4 MG/4 ML VIAL IVC ONE (21:37)
[2019-07-16] MEDS ORDERED: *HR* Vasopressin 20 UNIT/ML VIAL ONE (21:37)
[2019-07-16] MEDS ORDERED: *HR* FentaNYL (PF) 100 MCG/2 ML VIAL ONE (23:24)
[2019-07-16] MEDS ORDERED: *HR* Labetalol 20 MG/4 ML SYRINGE IVP ONE (23:29)
[2019-07-16] MEDS ORDERED: Ringers Solution, Lactated 1,000 ML ONE (23:32)
[2019-07-16] MEDS ORDERED: *HR* FentaNYL (PF) 100 MCG/2 ML VIAL IVP ONE (23:33)
[2019-07-16] MEDS ORDERED: Fluconazole 400 MG/200 ML 400 MG/200 ML BAG IVPB ONE (23:34)
[2019-07-16 23:50] LABS: ABG Base Excess 1 mEq/L (-2 to 3); ABG HCO3 28 mEq/L (21-27); ABG Oxygen Saturation 97 % (95-98); ABG PCO2 49 mmHg (35-45); ABG PH 7.36 pH Units (7.32-7.45); ABG PO2 100 mmHg (85-104); ABG TCO2 29 mEq/L (20-26); Blood Gas Modality AF; Blood Gas VT 400 cc
[2019-07-16] MEDS: FentaNYL (PF) 1,000 MCG in 0.9 % Sodium Chloride 80 ML IVC SCH (23:51)
[2019-07-16] MEDS: Ringers Solution, Lactated 1,000 ML IVC SCH (23:52)
[2019-07-16] MEDS: 0.9 % Sodium Chloride 1,000 ML IVC SCH (23:52)
[2019-07-17] MEDS ORDERED: Piperacillin/Tazobactam 3.375 GM in 0.9 % Sodium Chloride Mini Bag 100 ML IVPB SCH
[2019-07-17 00:36] LABS: Basophils % 0.1 %; Hematocrit 35.1 % (35.3-44.9); Hemoglobin 11.7 g/dL (11.5-15.4); Immature Granulocytes % 0.6 % (0-4); Lymphocytes % 4.7 %; Mean Corpuscular HGB Conc 33.3 g/dL (31.6-35.5); Mean Corpuscular Hemoglobin 29.7 pg (28.0-33.3); Mean Corpuscular Volume 89.1 fL (83.0-100.0); Mean Platelet Volume 9.5 fL (9.4-12.4); Monocytes # 0.6 K/mcL (0.0-1.3); Monocytes % 2.9 %; Platelet Count 229 K/mcL (140-400); Red Blood Count 3.94 M/mcL (3.82-4.97); Red Cell Distribution Width 14.2 % (11.5-14.5); Segmented Neutrophils % 91.7 %; White Blood Count 21.8 K/mcL (4.3-11.1)
[2019-07-17 01:01] LABS: Albumin 2.7 g/dL (3.5-5.7); Albumin/Globulin Ratio 1.3 (1.1-2.2); Bilirubin,Total 0.8 mg/dL (0.3-1.0); Calcium 7.5 mg/dL (8.6-10.3); Globulin 2.1 g/dL (2.4-3.5); Magnesium 1.7 mg/dL (1.6-2.6); Phosphorous 4.2 mg/dL (2.7-4.5); Potassium 4.7 mEq/L (3.5-5.1); Total Protein 4.8 g/dL (6.4-8.9)
[2019-07-17 01:20] LABS: INR 0.9; Prothrombin Time 9.7 Seconds (9.4-12.1)
[2019-07-17 04:50] LABS: ABG Base Excess 3 mEq/L (-2 to 3); ABG HCO3 29 mEq/L (21-27); ABG Oxygen Saturation 98 % (95-98); ABG PCO2 48 mmHg (35-45); ABG PH 7.39 pH Units (7.32-7.45); ABG PO2 107 mmHg (85-104); ABG TCO2 31 mEq/L (20-26); Blood Gas Modality VC; Blood Gas VT 400 cc
[2019-07-17] MEDS: *HR* Heparin 5,000 UNIT/ML VIAL SQ SCH ×3 (05:13→20:49)
[2019-07-17] MEDS: Pantoprazole 40 MG VIAL IVP SCH ×2 (05:13→17:27)
[2019-07-17] MEDS ORDERED: *HR* Heparin 5,000 UNIT/ML VIAL SQ SCH (06:00)
[2019-07-17] MEDS ORDERED: Dexmedetomidine HCl 400 MCG/100 ML MLS IVC ONE (06:49)
[2019-07-17] MEDS: Dexmedetomidine HCl 400 MCG/100 ML MLS IVC SCH ×3 (07:02→22:52)
[2019-07-17] MEDS: Ringers Solution, Lactated 1,000 ML IVC SCH (08:06)
[2019-07-17] MEDS: FentaNYL (PF) 1,000 MCG in 0.9 % Sodium Chloride 80 ML IVC SCH ×2 (08:26→17:28)
[2019-07-17] MEDS: Piperacillin/Tazobactam 3.375 GM in 0.9 % Sodium Chloride Mini Bag 100 ML IVPB SCH ×2 (08:42→15:58)
[2019-07-17] MEDS: 0.9 % Sodium Chloride 1,000 ML IVC SCH ×2 (08:44→16:08)
[2019-07-17] MEDS: Fluconazole 200 MG/100 ML 200 MG/100 ML BAG IVPB SCH (08:52)
[2019-07-17] MEDS: Norepinephrine 8 MG in 0.9 % Sodium Chloride 250 ML IVC SCH (10:45)
[2019-07-17 12:04] LABS: Hematocrit 27.7 % (35.3-44.9)
[2019-07-17 12:07] LABS: Hemoglobin 9.1 g/dL (11.5-15.4)
[2019-07-17] MEDS ORDERED: Ipratropium/Albuterol Neb 3 ML IH PRN (14:29)
[2019-07-17 16:33] LABS: Hematocrit 26.8 % (35.3-44.9); Hemoglobin 8.6 g/dL (11.5-15.4)
[2019-07-17] MEDS ORDERED: Artificial Tears SOLN 15 ML BOTTLE BOTH EYES PRN ×2 (20:06→20:20)
[2019-07-17] MEDS: Chlorhexidine Rinse 15 ML MOUTHWASH MM SCH (20:48)
[2019-07-17] MEDS ORDERED: Chlorhexidine Rinse 15 ML MOUTHWASH MM SCH (21:00)
[2019-07-17] MEDS ORDERED: Acetaminophen IV 1,000 MG/100 ML INFUS..BTL IVPB ONE (23:35)
[2019-07-18] MEDS ORDERED: Artificial Tears SOLN 15 ML BOTTLE BOTH EYES SCH
[2019-07-18] MEDS: Piperacillin/Tazobactam 3.375 GM in 0.9 % Sodium Chloride Mini Bag 100 ML IVPB SCH ×4 (00:12→23:24)
[2019-07-18] MEDS: Artificial Tears SOLN 15 ML BOTTLE BOTH EYES SCH ×7 (00:12→23:23)
[2019-07-18 00:46] LABS: Hematocrit 26.2 % (35.3-44.9); Hemoglobin 8.4 g/dL (11.5-15.4)
[2019-07-18] MEDS: FentaNYL (PF) 1,000 MCG in 0.9 % Sodium Chloride 80 ML IVC SCH ×3 (01:34→21:04)
[2019-07-18 03:51] LABS: Basophils % 0.1 %; Eosinophils % 0.1 %; Hematocrit 27.2 % (35.3-44.9); Hemoglobin 8.8 g/dL (11.5-15.4); Immature Granulocytes % 0.6 % (0-4); Lymphocytes # 1.5 K/mcL (0.6-4.6); Lymphocytes % 9.2 %; Mean Corpuscular HGB Conc 32.4 g/dL (31.6-35.5); Mean Corpuscular Hemoglobin 29.6 pg (28.0-33.3); Mean Corpuscular Volume 91.6 fL (83.0-100.0); Mean Platelet Volume 9.7 fL (9.4-12.4); Monocytes # 0.5 K/mcL (0.0-1.3); Monocytes % 2.8 %; Neutrophils # 13.9 K/mcL (1.6-8.9); Platelet Count 157 K/mcL (140-400); Red Blood Count 2.97 M/mcL (3.82-4.97); Red Cell Distribution Width 14.8 % (11.5-14.5); Segmented Neutrophils % 87.2 %; White Blood Count 15.9 K/mcL (4.3-11.1)
[2019-07-18 04:07] LABS: Albumin 2.5 g/dL (3.5-5.7); Albumin/Globulin Ratio 1.1 (1.1-2.2); Bilirubin,Total 0.6 mg/dL (0.3-1.0); Calcium 8.1 mg/dL (8.6-10.3); Globulin 2.3 g/dL (2.4-3.5); Magnesium 2.2 mg/dL (1.6-2.6); Phosphorous 3.9 mg/dL (2.7-4.5); Potassium 4.2 mEq/L (3.5-5.1); Total Protein 4.8 g/dL (6.4-8.9)
[2019-07-18 04:38] LABS: ABG Base Excess 5 mEq/L (-2 to 3); ABG HCO3 29 mEq/L (21-27); ABG Oxygen Saturation 95 % (95-98); ABG PCO2 43 mmHg (35-45); ABG PH 7.44 pH Units (7.32-7.45); ABG PO2 74 mmHg (85-104); ABG TCO2 30 mEq/L (20-26); Blood Gas Modality ASSIST CONTROL; Blood Gas VT 400 cc
[2019-07-18] MEDS: *HR* Heparin 5,000 UNIT/ML VIAL SQ SCH ×3 (05:12→19:51)
[2019-07-18] MEDS: Pantoprazole 40 MG VIAL IVP SCH ×2 (05:12→17:30)
[2019-07-18] MEDS: Dexmedetomidine HCl 400 MCG/100 ML MLS IVC SCH ×2 (06:42→15:46)
[2019-07-18] MEDS: 0.9 % Sodium Chloride 1,000 ML IVC SCH ×2 (07:49→14:00)
[2019-07-18] MEDS: Pantoprazole 40 MG in 0.9 % Sodium Chloride Mini Bag 100 ML IVC SCH (07:50)
[2019-07-18] MEDS: Chlorhexidine Rinse 15 ML MOUTHWASH MM SCH ×2 (07:54→19:51)
[2019-07-18] MEDS: Fluconazole 200 MG/100 ML 200 MG/100 ML BAG IVPB SCH (07:54)
[2019-07-18] MEDS: Norepinephrine 8 MG in 0.9 % Sodium Chloride 250 ML IVC SCH (08:07)
[2019-07-19] MEDS: Dexmedetomidine HCl 400 MCG/100 ML MLS IVC SCH (03:06)
[2019-07-19] MEDS: Artificial Tears SOLN 15 ML BOTTLE BOTH EYES SCH ×5 (03:06→19:44)
[2019-07-19] MEDS: 0.9 % Sodium Chloride 1,000 ML IVC SCH ×2 (03:06→16:15)
[2019-07-19 03:41] LABS: Eosinophils # 0.2 K/mcL (0.0-0.6); Eosinophils % 1.4 %; Hematocrit 23.1 % (35.3-44.9); Hemoglobin 7.5 g/dL (11.5-15.4); Immature Granulocytes % 0.6 % (0-4); Immature Platelets 1.8 % (1.1-6.1); Lymphocytes # 0.9 K/mcL (0.6-4.6); Lymphocytes % 8.3 %; Mean Corpuscular HGB Conc 32.5 g/dL (31.6-35.5); Mean Corpuscular Hemoglobin 30.1 pg (28.0-33.3); Mean Corpuscular Volume 92.8 fL (83.0-100.0); Mean Platelet Volume 9.7 fL (9.4-12.4); Monocytes # 0.3 K/mcL (0.0-1.3); Monocytes % 2.5 %; Neutrophils # 9.1 K/mcL (1.6-8.9); Platelet Count 115 K/mcL (140-400); Red Blood Count 2.49 M/mcL (3.82-4.97); Red Cell Distribution Width 15.3 % (11.5-14.5); Segmented Neutrophils % 87.2 %; White Blood Count 10.4 K/mcL (4.3-11.1)
[2019-07-19 04:04] LABS: Calcium 8.2 mg/dL (8.6-10.3); Potassium 3.9 mEq/L (3.5-5.1)
[2019-07-19 04:34] LABS: ABG Base Excess 1 mEq/L (-2 to 3); ABG HCO3 28 mEq/L (21-27); ABG Oxygen Saturation 94 % (95-98); ABG PCO2 56 mmHg (35-45); ABG PO2 81 mmHg (85-104); ABG TCO2 29 mEq/L (20-26); Blood Gas Modality AF; Blood Gas VT 400 cc
[2019-07-19] MEDS: *HR* Heparin 5,000 UNIT/ML VIAL SQ SCH ×3 (05:12→20:19)
[2019-07-19] MEDS: Pantoprazole 40 MG VIAL IVP SCH ×2 (05:13→18:02)
[2019-07-19] MEDS: FentaNYL (PF) 1,000 MCG in 0.9 % Sodium Chloride 80 ML IVC SCH (05:20)
[2019-07-19] MEDS: Piperacillin/Tazobactam 3.375 GM in 0.9 % Sodium Chloride Mini Bag 100 ML IVPB SCH ×3 (08:04→23:14)
[2019-07-19] MEDS: Chlorhexidine Rinse 15 ML MOUTHWASH MM SCH ×2 (08:04→19:44)
[2019-07-19] MEDS: Fluconazole 200 MG/100 ML 200 MG/100 ML BAG IVPB SCH (08:05)
[2019-07-19] MEDS: Norepinephrine 8 MG in 0.9 % Sodium Chloride 250 ML IVC SCH (08:05)
[2019-07-19] MEDS ORDERED: *HR* LORazepam 2 MG/ML VIAL IVP PRN (14:13)
[2019-07-19] MEDS: *HR* FentaNYL (PF) 100 MCG/2 ML VIAL IVP PRN (16:15)
[2019-07-19] MEDS ORDERED: *HR* Dextrose 50 % in Water (Syg) 50 ML SYRINGE IVP PRN (23:20)
[2019-07-19] MEDS ORDERED: D5% in Water 1,000 ML IVC PRN (23:20)
[2019-07-20] MEDS: *HR* FentaNYL (PF) 100 MCG/2 ML VIAL IVP PRN (03:52)
[2019-07-20 04:13] LABS: Basophils % 0.1 %; Eosinophils # 0.1 K/mcL (0.0-0.6); Eosinophils % 1.7 %; Hemoglobin 7.7 g/dL (11.5-15.4); Immature Granulocytes % 0.4 % (0-4); Lymphocytes # 0.6 K/mcL (0.6-4.6); Lymphocytes % 8.1 %; Mean Corpuscular HGB Conc 30.8 g/dL (31.6-35.5); Mean Corpuscular Hemoglobin 29.5 pg (28.0-33.3); Mean Corpuscular Volume 95.8 fL (83.0-100.0); Mean Platelet Volume 10.3 fL (9.4-12.4); Monocytes # 0.3 K/mcL (0.0-1.3); Monocytes % 3.6 %; Neutrophils # 6.5 K/mcL (1.6-8.9); Platelet Count 148 K/mcL (140-400); Red Blood Count 2.61 M/mcL (3.82-4.97); Red Cell Distribution Width 15.5 % (11.5-14.5); Segmented Neutrophils % 86.1 %; White Blood Count 7.5 K/mcL (4.3-11.1)
[2019-07-20 04:22] LABS: Calcium 8.5 mg/dL (8.6-10.3); Magnesium 2.2 mg/dL (1.6-2.6); Phosphorous 4.1 mg/dL (2.7-4.5); Potassium 3.9 mEq/L (3.5-5.1)
[2019-07-20] MEDS: Pantoprazole 40 MG VIAL IVP SCH (05:06)
[2019-07-20] MEDS: *HR* Heparin 5,000 UNIT/ML VIAL SQ SCH ×3 (05:06→21:58)
[2019-07-20] MEDS: Fluconazole 200 MG/100 ML 200 MG/100 ML BAG IVPB SCH (08:32)
[2019-07-20] MEDS: Piperacillin/Tazobactam 3.375 GM in 0.9 % Sodium Chloride Mini Bag 100 ML IVPB SCH ×2 (08:32→19:49)
[2019-07-20] MEDS ORDERED: D5% in Water 1,000 ML IVC PRN (12:46)
[2019-07-20] MEDS ORDERED: *HR* Dextrose 50 % in Water (Syg) 50 ML SYRINGE IVP PRN (12:46)
[2019-07-20] MEDS: 0.9 % Sodium Chloride 1,000 ML IVC SCH (18:17)
[2019-07-20] MEDS: Norepinephrine 8 MG in 0.9 % Sodium Chloride 250 ML IVC SCH (18:17)
[2019-07-20] MEDS ORDERED: Albuterol Neb 1.25 MG/3 ML VIAL IH PRN (22:00)
[2019-07-21] MEDS: *HR* Heparin 5,000 UNIT/ML VIAL SQ SCH ×3 (05:36→22:24)
[2019-07-21 07:42] LABS: Basophils % 0.2 %; Eosinophils % 0.7 %; Hematocrit 29.3 % (35.3-44.9); Hemoglobin 8.8 g/dL (11.5-15.4); Immature Granulocytes % 1.7 % (0-4); Lymphocytes # 0.4 K/mcL (0.6-4.6); Lymphocytes % 6.8 %; Mean Corpuscular Hemoglobin 29.7 pg (28.0-33.3); Mean Platelet Volume 9.7 fL (9.4-12.4); Monocytes # 0.4 K/mcL (0.0-1.3); Monocytes % 6.6 %; Platelet Count 175 K/mcL (140-400); Red Blood Count 2.96 M/mcL (3.82-4.97); Red Cell Distribution Width 16.1 % (11.5-14.5); White Blood Count 5.9 K/mcL (4.3-11.1)
[2019-07-21 08:03] LABS: Albumin 3.1 g/dL (3.5-5.7); Bilirubin,Total 0.2 mg/dL (0.3-1.0); Calcium 8.9 mg/dL (8.6-10.3); Magnesium 2.2 mg/dL (1.6-2.6); Potassium 4.2 mEq/L (3.5-5.1); Total Protein 6.1 g/dL (6.4-8.9)
[2019-07-21] MEDS: Piperacillin/Tazobactam 3.375 GM in 0.9 % Sodium Chloride Mini Bag 100 ML IVPB SCH (08:09)
[2019-07-21] MEDS: Levothyroxine Sodium 100 MCG VIAL IVP SCH (08:13)
[2019-07-21] MEDS: Pantoprazole 40 MG VIAL IVP SCH (08:13)
[2019-07-21] MEDS ORDERED: Fluconazole 200 MG/100 ML 200 MG/100 ML BAG IVPB SCH (09:00)
[2019-07-21] MEDS: Morphine Sulfate Oral CONC 10 MG/0.5 ML ORAL.SYG PO PRN (12:26)
[2019-07-21] MEDS ORDERED: Furosemide 40 MG/4 ML VIAL IVP ONE (13:09)
[2019-07-21] MEDS ORDERED: *HR* Metoprolol 5 MG/5 ML VIAL IVP ONE (13:10)
[2019-07-21 17:27] LABS: Calcium 8.7 mg/dL (8.6-10.3); Potassium 4.1 mEq/L (3.5-5.1)
[2019-07-21] MEDS ORDERED: Piperacillin/Tazobactam 3.375 GM in D5% in Water (Mini-Bag+) 100 ML IVPB SCH ×2 (18:00→20:00)
[2019-07-21 22:02] LABS: Calcium 8.9 mg/dL (8.6-10.3); Potassium 4.1 mEq/L (3.5-5.1)
[2019-07-22] MEDS: Morphine Sulfate Oral CONC 10 MG/0.5 ML ORAL.SYG PO PRN ×2 (00:36→11:51)
[2019-07-22] MEDS: *HR* Heparin 5,000 UNIT/ML VIAL SQ SCH ×3 (06:07→21:59)
[2019-07-22 07:18] LABS: Basophils % 0.2 %; Hematocrit 28.8 % (35.3-44.9); Red Cell Distribution Width 16.2 % (11.5-14.5)
[2019-07-22 07:20] LABS: Eosinophils # 0.1 K/mcL (0.0-0.6); Eosinophils % 1.1 %; Hemoglobin 8.6 g/dL (11.5-15.4); Immature Granulocytes % 0.7 % (0-4); Lymphocytes # 0.6 K/mcL (0.6-4.6); Lymphocytes % 10.3 %; Mean Corpuscular HGB Conc 29.9 g/dL (31.6-35.5); Mean Corpuscular Hemoglobin 29.4 pg (28.0-33.3); Mean Corpuscular Volume 98.3 fL (83.0-100.0); Monocytes # 0.4 K/mcL (0.0-1.3); Neutrophils # 4.4 K/mcL (1.6-8.9); Platelet Count 201 K/mcL (140-400); Red Blood Count 2.93 M/mcL (3.82-4.97); Segmented Neutrophils % 80.7 %; White Blood Count 5.5 K/mcL (4.3-11.1)
[2019-07-22 07:36] LABS: Calcium 9.1 mg/dL (8.6-10.3); Potassium 3.8 mEq/L (3.5-5.1)
[2019-07-22] MEDS: Fluconazole 40 MG/ML UDC GTUBE SCH (07:40)
[2019-07-22] MEDS: Pantoprazole 40 MG VIAL IVP SCH (07:40)
[2019-07-22] MEDS: Levothyroxine Sodium 100 MCG VIAL IVP SCH (07:40)
[2019-07-22] MEDS: Ipratropium/Albuterol Neb 3 ML IH PRN ×3 (08:05→15:42)
[2019-07-22 08:06] LABS: Hypochromasia Present (Not Present); Platelet Estimate Normal (Normal)
[2019-07-22] MEDS: Piperacillin/Tazobactam 3.375 GM in D5% in Water (Mini-Bag+) 100 ML IVPB SCH ×2 (08:11→19:30)
[2019-07-22] MEDS ORDERED: Furosemide 40 MG/4 ML VIAL IVP ONE (08:47)
[2019-07-22] MEDS ORDERED: *HR* Metoprolol 5 MG/5 ML VIAL IVP ONE (08:48)
[2019-07-22 13:18] LABS: Bilirubin,Urine Negative (Negative); Blood,Urine Negative (Negative); Clarity,Urine Clear (Clear); Color,Urine Yellow (Yellow); Glucose,Urine (UA) Normal (Normal); Ketones,Urine Trace mg/dL (Negative); Leukocyte Esterase,Urine Negative (Negative); Nitrite,Urine Negative (Negative); Protein,Urine Trace mg/dL (Neg-Trace); Specific Gravity,Urine 1.009 (1.010-1.025); Urobilinogen,Urine Normal (Normal)
[2019-07-22 21:26] LABS: Potassium 3.2 mEq/L (3.5-5.1)
[2019-07-23 05:25] LABS: Basophils % 0.2 %; Eosinophils # 0.1 K/mcL (0.0-0.6); Eosinophils % 1.1 %; Hematocrit 24.7 % (35.3-44.9); Hemoglobin 7.6 g/dL (11.5-15.4); Immature Granulocytes % 1.1 % (0-4); Lymphocytes # 0.7 K/mcL (0.6-4.6); Lymphocytes % 11.2 %; Mean Corpuscular HGB Conc 30.8 g/dL (31.6-35.5); Mean Corpuscular Hemoglobin 29.6 pg (28.0-33.3); Mean Corpuscular Volume 96.1 fL (83.0-100.0); Mean Platelet Volume 10.2 fL (9.4-12.4); Monocytes # 0.3 K/mcL (0.0-1.3); Monocytes % 4.7 %; Nucleated Red Blood Cells 0.3 /100 WBC (0); Platelet Count 190 K/mcL (140-400); Red Blood Count 2.57 M/mcL (3.82-4.97); Red Cell Distribution Width 15.6 % (11.5-14.5); Segmented Neutrophils % 81.7 %; White Blood Count 6.4 K/mcL (4.3-11.1)
[2019-07-23 05:39] LABS: Neutrophils # 5.2 K/mcL (1.6-8.9)
[2019-07-23] MEDS: *HR* Heparin 5,000 UNIT/ML VIAL SQ SCH ×3 (06:07→21:48)
[2019-07-23 06:28] LABS: Ferritin 385 ng/mL (10-120); Iron < 10 mcg/dL (50-170); Transferrin 137 mg/dL (203-362)
[2019-07-23 06:42] LABS: Calcium 8.7 mg/dL (8.6-10.3); Potassium 3.3 mEq/L (3.5-5.1); Uric Acid 9.3 mg/dL (2.3-7.6)
[2019-07-23] MEDS: Piperacillin/Tazobactam 3.375 GM in D5% in Water (Mini-Bag+) 100 ML IVPB SCH ×2 (09:57→21:44)
[2019-07-23] MEDS: Levothyroxine Sodium 100 MCG VIAL IVP SCH (09:58)
[2019-07-23] MEDS: Pantoprazole 40 MG VIAL IVP SCH (09:58)
[2019-07-23] MEDS ORDERED: *HR* FentaNYL (PF) 100 MCG/2 ML VIAL IVP PRN (12:32)
[2019-07-23] MEDS: Fluconazole 40 MG/ML UDC GTUBE SCH (13:40)
[2019-07-23] MEDS: *HR* LORazepam 2 MG/ML VIAL IVP PRN (13:41)
[2019-07-23] MEDS: Morphine Sulfate 2 MG/ML SYRINGE IVP PRN (13:41)
[2019-07-23] MEDS ORDERED: Potassium Chloride Elixir 20 MEQ/15 ML UDC GTUBE ONE (15:02)
[2019-07-23 16:25] LABS: Calcium 8.8 mg/dL (8.6-10.3); Potassium 2.9 mEq/L (3.5-5.1)
[2019-07-23] MEDS: Potassium Chloride Elixir 20 MEQ/15 ML UDC PO SCH ×3 (20:35→23:39)
[2019-07-23] MEDS ORDERED: *HR* Metoprolol 5 MG/5 ML VIAL IVP ONE (21:24)
[2019-07-23] MEDS ORDERED: Clindamycin 900 MG/50 ML 900 MG/50 ML IV.SOLN IVPB SCH (22:00)
[2019-07-24] MEDS: Morphine Sulfate 2 MG/ML SYRINGE IVP PRN ×2 (01:26→16:25)
[2019-07-24] MEDS: *HR* Heparin 5,000 UNIT/ML VIAL SQ SCH ×2 (05:47→13:45)
[2019-07-24] MEDS ORDERED: Acetaminophen IV 1,000 MG/100 ML INFUS..BTL IVPB ONE (05:48)
[2019-07-24 06:55] LABS: Hematocrit 26.4 % (35.3-44.9); Hemoglobin 7.9 g/dL (11.5-15.4); Mean Corpuscular HGB Conc 29.9 g/dL (31.6-35.5); Mean Corpuscular Hemoglobin 29.3 pg (28.0-33.3); Mean Corpuscular Volume 97.8 fL (83.0-100.0); Mean Platelet Volume 10.3 fL (9.4-12.4); Monocytes # 0.2 K/mcL (0.0-1.3); Platelet Count 208 K/mcL (140-400); Red Cell Distribution Width 15.6 % (11.5-14.5); White Blood Count 8.1 K/mcL (4.3-11.1)
[2019-07-24 07:09] LABS: Potassium 3.4 mEq/L (3.5-5.1)
[2019-07-24 07:10] LABS: Calcium 9.1 mg/dL (8.6-10.3)
[2019-07-24 07:43] VITALS: BP 131/70
[2019-07-24 07:51] LABS: Lymphocytes # 0.3 K/mcL (0.6-4.6); Neutrophils # 7.6 K/mcL (1.6-8.9); Platelet Estimate Normal (Normal)
[2019-07-24] MEDS: Pantoprazole 40 MG VIAL IVP SCH (08:04)
[2019-07-24] MEDS: Levothyroxine Sodium 100 MCG VIAL IVP SCH (08:04)
[2019-07-24] MEDS: Piperacillin/Tazobactam 3.375 GM in D5% in Water (Mini-Bag+) 100 ML IVPB SCH (10:09)
[2019-07-24] MEDS: *HR* LORazepam 2 MG/ML VIAL IVP PRN (11:49)
[2019-07-24] MEDS ORDERED: Clindamycin 900 MG/50 ML 900 MG/50 ML IV.SOLN IVPB SCH (15:00)
[2019-07-24] MEDS ORDERED: Scopolamine Patch 1.5 MG PATCH.TD72 TD ONE (16:21)
[2019-07-25 05:04] LABS: Kappa Qnt Free Light Chains 2.3 mg/dL (0.33-1.94); Lambda Qnt Free Light Chains 1.43 mg/dL (0.57-2.63)
[2019-07-26 17:49] LABS: Alpha 2 Globulin (PEP) 1.29 g/dL (0.48-1.05)
[2019-07-27 10:25] LABS: Immunoglobulin G 393 mg/dL (768-1632); Immunoglobulin M 36 mg/dL (35-263)
[2019-07-27 10:26] LABS: IFE Reflexed IFE Done; Immunoglobulin A 198 mg/dL (68-408)
== END 2019-07-24 18:04 | disposition home or self-care (01) | DRG 853 ==
LOC: EMEROOARM 16:30 → SUATTDRO 20:45 → ICNU 20:45 → 3ANU 07-20 15:21
PROVIDERS: ADMIT Surgery; ATTEND Internal Medicine

== ENCOUNTER 2019-07-24 11:40 | Inpatient (IN) ==
[2019-07-24] MEDS ORDERED: Ondansetron ODT 4 MG TAB.RAPDIS SL PRN (16:27)
[2019-07-24] MEDS ORDERED: Bisacodyl 10 MG RECTAL SUPPOSITORY RC PRN (16:27)
[2019-07-24] MEDS: Acetaminophen 650 MG RECTAL SUPP RC SCH (20:30)
[2019-07-24] MEDS: *HR* LORazepam 2 MG/ML VIAL IVP PRN (20:31)
[2019-07-25] MEDS: Acetaminophen 650 MG RECTAL SUPP RC SCH ×3 (00:13→09:10)
[2019-07-25] MEDS ORDERED: Acetaminophen 650 MG RECTAL SUPP RC PRN (09:56)
[2019-07-25] MEDS: Morphine Sulfate 2 MG/ML SYRINGE IVP PRN ×4 (10:22→18:44)
[2019-07-25] MEDS ORDERED: Morphine Sulfate Oral CONC 10 MG/0.5 ML ORAL.SYG SL PRN (11:01)
[2019-07-25] MEDS: *HR* LORazepam 2 MG/ML VIAL IVP PRN (11:02)
[2019-07-25] MEDS: Atropine Sulfate 1% 40 DROP/2 ML BOTTLE SL PRN ×4 (15:34→21:34)
[2019-07-25 20:47] VITALS: BP 141/72
[2019-07-25] MEDS ORDERED: Scopolamine Patch 1.5 MG PATCH.TD72 TD SCH (21:15)
== END 2019-07-26 03:25 | disposition expired | DRG 951 ==
LOC: 2ANU 18:09
PROVIDERS: ADMIT Internal Medicine Hospice and Palliative Medicine; ATTEND Internal Medicine Hospice and Palliative Medicine